=== PATIENT | female | born 1940 | race Caucasian/White ===

== ENCOUNTER → 2016-11-16 | Outpatient (CLI) | payer MEDICARE ==
[~2016-11-16] MED LIST: ACTOS45 MG PO; AMBIEN10 M1 PO; BACTRIM 400 MG-1 TAB PO; DETROL2 MG PO; FLOMAX0.4 MG PO; HYDROCHLOROTH12.5 M1 PO; HYDROCODONE BIT1 T11 PO; LEVOFLOXACIN500 MG PO; LIPITOR10 MG PO; METFORMIN1000 MG PO; MULTIPLE VITAMI1 CAP PO; SYNTHROID0.025 MG PO; VICODIN 500 MG-1 TAB PO; VITAMIN D1000 IU PO; ZOLOFT100 MG PO
== END | disposition home or self-care (01) ==
LOC: MAMMO 09:49
DX: Z12.31 Encounter for screening mammogram for malignant neoplasm of breast (principal)

== ENCOUNTER → 2016-12-25 | Emergency (ER) | payer MEDICARE ==
[~2016-12-25] VITALS: Ht 160 cm; Wt 113.4 kg
== END ==
LOC: ED 08:07
DX: R04.0 Epistaxis (principal); Z79.899 Other long term (current) drug therapy

== ENCOUNTER 2017-03-25 20:37 | Emergency (ER) | payer MEDICARE ==
[~2017-03-25] VITALS: Ht 165.1 cm; Wt 113.4 kg
[2017-03-25] MEDS ORDERED: CEPHALEXIN500 M1 PO (23:34)
== END 2017-03-25 23:35 | disposition home or self-care (01) ==
LOC: ED 20:37
DX: R04.0 Epistaxis (principal); Z91.018 Allergy to other foods; Z79.899 Other long term (current) drug therapy

== ENCOUNTER 2017-03-27 07:45 | Emergency (ER) | payer MEDICARE ==
[~2017-03-27] VITALS: Ht 162.5 cm; Wt 113.4 kg
[~2017-03-27 07:45] MED LIST changes: +CEPHALEXIN500 M1 PO
== END 2017-03-27 09:23 | disposition home or self-care (01) ==
LOC: ED 07:45
DX: R04.0 Epistaxis (principal); Z79.899 Other long term (current) drug therapy; Z91.018 Allergy to other foods

== ENCOUNTER → 2019-07-13 | Outpatient (CLI) | payer MEDICARE ==
[2019-07-15 14:06] LABS: ALBUMIN, URINE 46.2 % (.); ALPHA - 2 - GLOBULIN, URINE 12.1 % (.); GAMMA GLOBULIN, URINE 16.7 % (.); M-SPIKE, % Not Observed % (Not Observed); PROTEIN,TOTAL - URINE RANDOM 23.9 mg/dL (Not Estab.)
[2019-07-15 14:40] LABS: URINE VOLUME 375 mL
== END | disposition home or self-care (01) ==
LOC: LAB 09:07
PROVIDERS: Internal Medicine Hematology & Oncology
DX: D69.9 Hemorrhagic condition, unspecified (principal); D47.2 Monoclonal gammopathy; R91.1 Solitary pulmonary nodule